=== PATIENT | female | born 1940 | race Caucasian/White ===

== ENCOUNTER 2018-01-25 06:34 | Day surgery (SDC) | payer MEDICARE, OTHER ==
[~2018-01-25 06:34] MED LIST: ALENDRONATE70 MG PO; AMLODIPINE BESY10 MG PO; AMLODIPINE5 MG PO; ASPIRIN EC81 MG PO; BENICAR20 MG PO; FISH OIL1000 MG PO; FUROSEMIDE40 MG PO; JANUVIA50 MG PO; LASIX 40 MG40 MG/TAB PO; LORTAB 1010 MG PO; METFORMIN500 MG PO; MULTIVITAMI1 PO; OS-CAL 500500 M1 PO; PAROXETINE20 MG PO; PROAIR HFA IN; ROBITUSSIN AC10 ML PO; SINGULAIR10 MG PO; TAM75CAP PO; VYTORIN 10/401 TAB PO; ZITHROMAX Z-PAK1 TAB PO
[2018-01-25 09:04] VITALS: BP 134/76
== END 2018-01-25 09:00 | disposition home or self-care (01) ==
LOC: ENDO 06:34
PROVIDERS: ATTEND Surgery
PROC: 0DBF8ZX Excision of Right Large Intestine, Via Natural or Artificial Opening Endoscopic, Diagnostic (ICD-10-PCS; principal; 2018-01-25)
DX: Z12.11 Encounter for screening for malignant neoplasm of colon (principal); D12.2 Benign neoplasm of ascending colon; I10 Essential (primary) hypertension; E11.9 Type 2 diabetes mellitus without complications; M81.0 Age-related osteoporosis without current pathological fracture

== ENCOUNTER 2019-04-06 20:30 | Emergency (ER) | payer MEDICARE, OTHER ==
[~2019-04-06] VITALS: Ht 154.9 cm; Wt 100.0 kg
[2019-04-06 21:32] LABS: HEMATOCRIT 36.1 % (37.0-47.0); HEMOGLOBIN 11.7 g/dl (12.0-16.0); IMMATURE GRANULOCYTES 1.8 % (0.0-5.0); MEAN CELL VOLUME 90.7 fL CALC (80.0-100.0); MEAN CORPUSCULAR HGB 29.4 pG CALC (26.0-32.0); MEAN CORPUSCULAR HGB CONC 32.4 g/L CALC (32.0-36.0); NEUT# 6.61 thou/uL (2.00-7.15); RED BLOOD COUNT 3.98 mill/uL (4.20-5.60); RED CELL DISTRI WIDTH 13.4 % (11.5-15.5)
[2019-04-06 21:42] LABS: ALBUMIN 4.2 g/dL (3.2-5.0); ALKALINE PHOSPHATASE 73 u/l (38-126); ANION GAP 15 (6-22 (CALC)); BILIRUBIN, TOTAL 0.4 mg/dL (0.0-1.4); BUN 23 mg/dL (8-23); BUN/CREATININE RATIO 32 (12-20 (CALC)); CARBON DIOXIDE 24 mmol/l (22-30); CHLORIDE 104 mmol/l (95-108); CREATININE 0.7 mg/dL (0.5-1.0); GFR > 60 ML/MIN (>=60 (CALC)); GFR FOR AFR.AMER. > 60 ML/MIN (>=60 (CALC)); SGOT/AST 22 u/l (9-36); SODIUM 139 mmol/l (137-146); TOTAL PROTEIN 6.8 g/dL (6.3-8.2)
[2019-04-06 23:01] LABS: URINE BILIRUBIN - DIPSTICK NEGATIVE (NEGATIVE); URINE BLOOD DIPSTICK NEGATIVE (NEGATIVE); URINE COLOR YELLOW; URINE GLUCOSE - DIPSTICK 100 mg/dL (NEGATIVE); URINE KETONE NEGATIVE (NEGATIVE); URINE LEUK ESTERASE TRACE (NEGATIVE); URINE PH 5.5 (4.5-8.0); URINE PROTEIN - DIPSTICK NEGATIVE (NEG-TRACE); URINE UROBILINOGEN - DIPSTICK 0.2 E.U./dL (0.2)
[2019-04-06 23:02] LABS: URINE NITRITE - DIPSTICK POSITIVE (Negative)
[2019-04-06 23:12] LABS: URINE RBC 0-2 RBC/hpf (0-5); URINE SQUAMOUS EPITHELIAL CELL RARE EPI/hpf (0-FEW); URINE WBC 0-2 WBC/hpf (0-5)
[2019-04-06 23:13] LABS: URINE BACTERIA MODERATE hpf; URINE YEAST MODERATE hpf
[2019-04-07] MEDS ORDERED: KEFLEX500 MG PO (00:28)
[2019-04-07 00:37] VITALS: BP 125/58
== END 2019-04-07 00:37 | disposition home or self-care (01) ==
LOC: ED 20:30
PROVIDERS: Emergency Medicine
DX: N39.0 Urinary tract infection, site not specified (principal); R10.31 Right lower quadrant pain; R50.9 Fever, unspecified; B96.20 Unspecified Escherichia coli [E. coli] as the cause of diseases classified elsewhere

== ENCOUNTER 2020-12-18 08:10 | Day surgery (SDC) | payer MEDICARE, OTHER ==
[~2020-12-18] VITALS: Ht 154.9 cm; Wt 99.8 kg
[~2020-12-18 08:10] MED LIST changes: +BISOPROL FUM5 MG PO; +KEFLEX500 MG PO; +METFORMIN500 M2 PO; +MULTI VIT PO; +SERTRALINE50 MG PO; +XARELTO10 MG PO; +[UNRECOGNIZED DRUG - OTHER] PO
[2020-12-18 10:32] VITALS: BP 118/78
== END 2020-12-18 10:50 | disposition home or self-care (01) ==
LOC: ENDO 08:10 → ORM 08:30 → ENDO 10:50
PROVIDERS: ATTEND Surgery
PROC: 0DBK8ZX Excision of Ascending Colon, Via Natural or Artificial Opening Endoscopic, Diagnostic (ICD-10-PCS; principal; 2020-12-18)
DX: Z12.11 Encounter for screening for malignant neoplasm of colon (principal); D12.2 Benign neoplasm of ascending colon; K57.30 Diverticulosis of large intestine without perforation or abscess without bleeding; I10 Essential (primary) hypertension; E11.9 Type 2 diabetes mellitus without complications; Z79.84 Long term (current) use of oral hypoglycemic drugs; Z79.01 Long term (current) use of anticoagulants; Z95.0 Presence of cardiac pacemaker; Z86.010 Personal history of colon polyps; Z20.822 Contact with and (suspected) exposure to COVID-19

== ENCOUNTER 2022-04-08 22:55 | Emergency (ER) | payer MEDICARE, OTHER ==
[~2022-04-08] VITALS: Ht 154.9 cm; Wt 95.0 kg
[2022-04-08 23:12] VITALS: BP 149/56
[2022-04-08] MEDS ORDERED: CRESTOR20 MG PO (23:30)
[2022-04-08 23:31] VITALS: BP 129/51
[2022-04-08] MEDS ORDERED: OSTEO BI-FLEX J1 TAB PO (23:31)
[2022-04-08] MEDS ORDERED: AMOXICILLIN500 MG PO (23:32)
[2022-04-08 23:38] VITALS: BP 129/51
== END 2022-04-08 23:45 | disposition home or self-care (01) ==
LOC: ED 22:55
PROC: 2Y41X5Z Packing of Nasal Region using Packing Material (ICD-10-PCS; principal; 2022-04-08)
DX: R04.0 Epistaxis (principal); I10 Essential (primary) hypertension; E11.9 Type 2 diabetes mellitus without complications; Z95.0 Presence of cardiac pacemaker; Z79.84 Long term (current) use of oral hypoglycemic drugs; Z79.01 Long term (current) use of anticoagulants

== ENCOUNTER 2022-04-10 19:41 | Emergency (ER) | payer MEDICARE, OTHER ==
[~2022-04-10] VITALS: Ht 154.9 cm; Wt 97.0 kg
[2022-04-10] VITALS (7 sets, daily range): BP systolic 147–164; BP diastolic 66–76
[~2022-04-10 19:41] MED LIST changes: +AMOXICILLIN500 MG PO; +CRESTOR20 MG PO; +OSTEO BI-FLEX J1 TAB PO
== END 2022-04-10 21:19 | disposition home or self-care (01) ==
LOC: ED 19:41
DX: R04.0 Epistaxis (principal); I10 Essential (primary) hypertension; E11.9 Type 2 diabetes mellitus without complications; Z95.0 Presence of cardiac pacemaker; Z79.01 Long term (current) use of anticoagulants; Z79.84 Long term (current) use of oral hypoglycemic drugs

== ENCOUNTER 2022-04-12 07:23 | Emergency (ER) | payer MEDICARE, OTHER ==
[~2022-04-12] VITALS: Ht 154.9 cm; Wt 75.0 kg
[2022-04-12 07:31] VITALS: BP 151/65
[2022-04-12 07:45] VITALS: BP 140/60
== END 2022-04-12 08:00 | disposition home or self-care (01) ==
LOC: ED 07:23
DX: Z48.00 Encounter for change or removal of nonsurgical wound dressing (principal); I10 Essential (primary) hypertension; E11.9 Type 2 diabetes mellitus without complications; Z95.0 Presence of cardiac pacemaker; Z79.01 Long term (current) use of anticoagulants

== ENCOUNTER 2023-12-03 19:15 | Emergency (ER) | payer MEDICARE, OTHER ==
[2023-12-03] VITALS (17 sets, daily range): BP systolic 95–155; BP diastolic 52–62
[~2023-12-03] VITALS: Ht 154.9 cm; Wt 90.0 kg
[~2023-12-03 19:15] MED LIST changes: +DONEPEZIL10 MG PO; +LOSARTAN POTASS25 MG PO; +TENORMIN PO
[2023-12-03 20:17] LABS: BASO% 0.8 % (0-3); EOS% 1.2 % (0-8); HEMATOCRIT 38.8 % (37.0-47.0); HEMOGLOBIN 12.9 g/dl (12.0-16.0); IMMATURE GRANULOCYTES 0.5 % (0.0-5.0); LYMPH% 24.4 % (15-41); MEAN CELL VOLUME 90.9 fL CALC (80.0-100.0); MEAN CORPUSCULAR HGB 30.2 pG CALC (26.0-32.0); MEAN CORPUSCULAR HGB CONC 33.2 g/dL CAL (32.0-36.0); MONO% 7.8 % (2-13); NEUT# 4.91 thou/uL (2.00-7.15); NEUT% 65.3 % (42-76); RED BLOOD COUNT 4.27 mill/uL (4.20-5.60); RED CELL DISTRI WIDTH 12.9 % (11.5-15.5)
[2023-12-03 20:24] LABS: ALBUMIN 4.6 g/dL (3.2-5.0); ALKALINE PHOSPHATASE 70 u/l (38-126); ANION GAP 13 (6-22 (CALC)); BILIRUBIN, TOTAL 0.4 mg/dL (0.02-1.3); BUN 16 mg/dL (8-23); BUN/CREATININE RATIO 24 (12-20 (CALC)); CARBON DIOXIDE 25 mmol/l (22-30); CHLORIDE 106 mmol/l (95-108); CREATININE 0.7 mg/dL (0.5-1.0); GFR FOR AFR.AMER. > 60 ML/MIN (>=60 (CALC)); GFR OTHER RACES > 60 ML/MIN (>=60 (CALC)); POTASSIUM 3.8 mmol/l (3.5-5.1); SGOT/AST 44 u/l (9-36); SODIUM 140 mmol/l (137-146); TOTAL PROTEIN 7.8 g/dL (6.3-8.2)
[2023-12-03 20:25] LABS: D-DIMER 0.44 mg/L (0.19-0.60); INTERNATIONAL NORMALIZED RATIO 1.2 RATIO (0.7-1.3); PROTHROMBIN TIME 11.5 SECONDS (9.0-12.5)
[2023-12-03 22:50] LABS: URINE BILIRUBIN - DIPSTICK Negative (NEGATIVE); URINE BLOOD DIPSTICK Negative (NEGATIVE); URINE GLUCOSE - DIPSTICK Negative (NEGATIVE); URINE KETONE Negative (NEGATIVE); URINE LEUK ESTERASE Trace (NEGATIVE); URINE NITRITE - DIPSTICK Negative (Negative); URINE PROTEIN - DIPSTICK Negative (NEG-TRACE); URINE SPECIFIC GRAVITY 1.015; URINE UROBILINOGEN - DIPSTICK 0.2 E.U./dL (0.2)
[2023-12-03 22:51] LABS: URINE COLOR Yellow
[2023-12-03] MEDS ORDERED: DOXYCYCLINE HYCLATE 100 MG/CAP PO ONE (23:30)
[2023-12-03] MEDS ORDERED: DOXYCYCLIN25 MG/5 ML PO (23:38)
== END 2023-12-03 23:53 | disposition home or self-care (01) ==
LOC: ED 19:15
PROVIDERS: Family Medicine
DX: N39.0 Urinary tract infection, site not specified (principal); I10 Essential (primary) hypertension; E11.9 Type 2 diabetes mellitus without complications; Z95.0 Presence of cardiac pacemaker; Z20.822 Contact with and (suspected) exposure to COVID-19; R94.31 Abnormal electrocardiogram [ECG] [EKG]